=== PATIENT | female | born 1990 | race Caucasian/White ===

== ENCOUNTER 2018-12-17 22:24 | Inpatient (IN) | payer MEDICAID ==
[~2018-12-17] VITALS: Ht 170.2 cm; Wt 105.2 kg
--- NOTE | 2018-12-17 22:21 | NUR ---
NICOLE MOYER presented to unit via wheelchair from ED, accompanied by family , with c/o LABOR. NICOLE MOYER weighed, gowned, voided, and to bed. EFHM and TOCO applied, VS taken. NICOLE MOYER oriented to bed controls, call light, TV, heat, and A/C controls.
[2018-12-17 22:25] VITALS: BP 194/117
[2018-12-17] MEDS ORDERED: AMPICILLIN FOR IV USE 2,000 MG VIAL ONE (22:26)
[2018-12-17] MEDS ORDERED: D5 LR IV SOLUTION 1,000 ML IV ONE (22:26)
[2018-12-17] MEDS ORDERED: OXYTOCIN/NORMAL SALINE 500 ML IV ONE (22:26)
[2018-12-17] MEDS ORDERED: WATER (STERILE) FOR INJECTION 20 ML ONE (22:28)
[2018-12-17 22:30] VITALS: BP 145/107
[2018-12-17] MEDS ORDERED: LIDOCAINE/EPI 2% 1:200,00 (XYLOCAINE) 10 ML VIAL ONE (22:30)
--- OUTSIDE RECORDS SUMMARY | 2018-12-17 22:35 | XMS REPORT | Continuity of Care Document ---
Author Organization Unknown Address Unknown Allergies There is no data. Medications There is no data. Problems There is no data. Procedures There is no data. Results Test Result Range CULTURE, GROUP B STREP (VAGINAL) - 12/05/18 09:48 STREPTOCOCCUS, GROUP B CULTURE SEE NOTE NRG CMP - 12/12/18 10:30 GLUCOSE 80 mg/dL 65-139 UREA NITROGEN (BUN) 7 mg/dL 7-25 CREATININE 0.56 mg/dL 0.50-1.10 eGFR NON-AFR. SCOTTISH 126 mL/min/1.73m2 > OR=60 eGFR 146 mL/min/1.73m2 > OR=60 BUN/CREATININE RATIO NOT APPLICABLE (calc) 6-22 SODIUM 139 mmol/L 135-146 POTASSIUM 4.3 mmol/L 3.5-5.3 CHLORIDE 104 mmol/L 98-110 CARBON DIOXIDE 24 mmol/L 20-32 CALCIUM 9.1 mg/dL 8.6-10.2 PROTEIN, TOTAL 6.5 g/dL 6.1-8.1 ALBUMIN 3.5 g/dL 3.6-5.1 GLOBULIN 3.0 g/dL (calc) 1.9-3.7 ALBUMIN/GLOBULIN RATIO 1.2 (calc) 1.0-2.5 BILIRUBIN, TOTAL 0.3 mg/dL 0.2-1.2 ALKALINE PHOSPHATASE 137 U/L 33-115 AST 17 U/L 10-30 ALT 18 U/L 6-29 URIC ACID, SERUM - 12/12/18 10:30 URIC ACID 4.3 mg/dL 2.5-7.0 CBC - 12/12/18 10:30 WHITE BLOOD CELL COUNT 12.9 Thousand/uL 3.8-10.8 RED BLOOD CELL COUNT 3.97 Million/uL 3.80-5.10 HEMOGLOBIN 12.5 g/dL 11.7-15.5 HEMATOCRIT 37.1 % 35.0-45.0 MCV 93.5 fL 80.0-100.0 MCH 31.5 pg 27.0-33.0 MCHC 33.7 g/dL 32.0-36.0 RDW 11.9 % 11.0-15.0 PLATELET COUNT 199 Thousand/uL 140-400 MPV 12.1 fL 7.5-12.5 ABSOLUTE NEUTROPHILS 9727 cells/uL 6811-1259 ABSOLUTE LYMPHOCYTES 2012 cells/uL 850-3900 ABSOLUTE MONOCYTES 955 cells/uL 200-950 ABSOLUTE EOSINOPHILS 181 cells/uL 15-500 ABSOLUTE BASOPHILS 26 cells/uL 0-200 NEUTROPHILS 75.4 % NRG LYMPHOCYTES 15.6 % NRG MONOCYTES 7.4 % NRG EOSINOPHILS 1.4 % NRG BASOPHILS 0.2 % NRG Encounters ACCT No. Visit Date/Time Discharge Status Pt. Type Provider Facility Loc./Unit Complaint [id number] 12/12/2018 10:15:00 12/12/2018 23:59:59 [facility] Outpatient RAINA ESSIE INDU [facility] [id number] 12/12/2018 10:15:00 Document Registration [id number] 12/05/2018 09:30:00 Document Registration
--- OUTSIDE RECORDS SUMMARY | 2018-12-17 22:35 | XMS REPORT ---
Author Author MARIANO MONDRAGON Organization [employer] Address Unknown Phone Unavailable Care Team Providers Care Shipping Assistant Name Role Phone MARIANO MONDRAGON CP Unavailable Allergies, Adverse Reactions, Alerts Substance Reaction Event Type N.K.D.A. Info Not Available Non Drug Allergy Problems Problem Type Condition Code Onset Dates Condition Status Assessment Dental examination Z01.20 Active Medications No Known Medications Procedures Procedure Coding System Code Date INTRAORL-PERIAPICAL 1 FILM 90729 CPT-4 D0220 Sep 09, 2015 LTD ORAL EVALUATION - PROBLEM FOCUS CPT-4 D0140 Sep 09, 2015 Vital Signs Date/Time: Sep 09, 2015 Blood Pressure Diastolic 77 mmHg Blood Pressure Systolic 118 mmHg Results No Known Results Summary Purpose [employer] Submission
--- OUTSIDE RECORDS SUMMARY | 2018-12-17 22:35 | XMS REPORT ---
Author Author MARIANO MONDRAGON Organization [employer] Address Unknown Phone Unavailable Care Team Providers Care Administrative Receptionist Name Role Phone MARIANO MONDRAGON CP Unavailable Allergies, Adverse Reactions, Alerts Substance Reaction Event Type N.K.D.A. Info Not Available Non Drug Allergy Problems Problem Type Condition Code Onset Dates Condition Status Assessment Dental caries K02.9 Active Assessment Encounter for dental examination Z01.20 Active Medications Medication Code System Code Instructions Start Date End Date Status Dosage Hoyt [facility] [id number] 5-325 MG Orally every 6 hrs Aug 25, 2015 Aug 30, 2015 1 tablet as needed Procedures Procedure Coding System Code Date INTRAORL-PERIAPICAL 1 FILM 63207 CPT-4 D0220 Aug 25, 2015 BITEWING - SINGLE FILM CPT-4 D0270 Aug 25, 2015 LTD ORAL EVALUATION - PROBLEM FOCUS CPT-4 D0140 Aug 25, 2015 EXTRAC ERUPTED TOOTH/EXPOSED ROOT CPT-4 D7140 Aug 25, 2015 EXTRAC ERUPTED TOOTH/EXPOSED ROOT CPT-4 D7140 Aug 25, 2015 Vital Signs Date/Time: Aug 25, 2015 Blood Pressure Diastolic 88 mmHg Blood Pressure Systolic 133 mmHg Results No Known Results Summary Purpose [employer] Submission
[2018-12-17] MEDS ORDERED: LIDOCAINE 1% INJ 20 ML 20 ML VIAL ONE ×3 (22:36→23:13)
[2018-12-17 23:00] VITALS: BP 155/97
[2018-12-17] MEDS ORDERED: AMPICILLIN FOR IV USE 2,000 MG in WATER (STERILE) FOR INJECTION 14.8 ML IV ONE (23:05)
[2018-12-17] MEDS ORDERED: D5 LR IV SOLUTION 1,000 ML IV SCH (23:05)
[2018-12-17 23:12] LABS: BASOPHILS % (AUTO) 0 % (0-10); EOSINOPHILS # (AUTO) 0.2 10^3/uL (0.0-0.3); EOSINOPHILS % (AUTO) 1 % (0-10); HEMATOCRIT 41 % (35-52); HEMOGLOBIN 13.9 G/DL (11.5-16.0); LYMPHOCYTES # (AUTO) 3.3 X 10^3 (1.0-4.0); LYMPHOCYTES % (AUTO) 16 % (12-44); MEAN CORPUSCULAR HEMOGLOBIN 32 PG (25-34); MEAN CORPUSCULAR HGB CONC 34 G/DL (32-36); MEAN CORPUSCULAR VOLUME 93 FL (80-99); MEAN PLATELET VOLUME 12.3 FL (7.4-10.4); MONOCYTES # (AUTO) 1.6 X 10^3 (0.0-1.0); MONOCYTES % (AUTO) 8 % (0-12); NEUTROPHILS # (AUTO) 15.7 X 10^3 (1.8-7.8); NEUTROPHILS % (AUTO) 76 % (42-75); PLATELET COUNT 228 10^3/uL (130-400); WHITE BLOOD COUNT 20.7 10^3/uL (4.3-11.0)
[2018-12-17] MEDS ORDERED: MINERAL OIL CONCENTRATE 99.9% 15 ML UDC TOP PRN (23:15)
[2018-12-17 23:25] VITALS: BP 137/91
[2018-12-17 23:29] LABS: BAND NEUTROPHILS 1 %; BASOPHILS % (MANUAL) 0 %; EOSINOPHILS % (MANUAL) 1 %; LYMPHOCYTES % (MANUAL) 15 %; MONOCYTES % (MANUAL) 4 %; NEUTROPHILS % (MANUAL) 79 %; RBC MORPH NORMAL
[2018-12-17 23:40] VITALS: BP 177/80
--- NOTE | 2018-12-17 23:49 | History & Physical-OB/GYN ---
History of Present Illness History of Present Illness Reason for visit/HPI Onset of labor Date of Admission Dec 17, 2018 at 22:31 Date Seen by a Provider: Dec 17, 2018 Time Seen by a Provider: 10:35 I consulted on this patient on 12/17/18 23:43 Attending Physician Michael Jo DO Admitting Physician Michael Jo DO Consult Allergies and Home Medications Allergies Coded Allergies: No Known Drug Allergies (Unverified , 12/17/18) Patient Home Medication List Home Medication List Reviewed: Yes Past Uwkapxx-Rmhnwl-Vifqdz Hx Patient Social History Marrital Status: single Number of Children: 0 Number of living children: 0 Employed/Student: employed Alcohol Use: Denies Use Recreational Drug Use: No Smoking Status: Never a Smoker Recent Foreign Travel: No Contact w/other who traveled: No Surgeries Yes (D & C) Respiratory No Currently Using CPAP: No Currently Using BIPAP: No Cardiovascular No Neurological No Reproductive System : Yes Expected Date of Delivery: December 31, 2018 Last Menstrual Period: Dec 17, 2018 Hx : 2 Hx Para: 0 Hx Total # of Abortions (Spona: 1 Hx Reproductive Disorders: No Sexually Transmitted Disease: No HIV/AIDS: No Genitourinary No Gastrointestinal No Musculoskeletal No Endocrine History of Endocrine Disorders: No HEENT History of HEENT Disorders: No Loss of Vision: Denies Hearing Impairment: Denies Cancer No Psychosocial History of Psychiatric Problem: No Integumentary History of Skin or Integumenta: No Blood Transfusions History of Blood Disorders: No Adverse Reaction to a Blood Tr: No Review of Systems Constitutional: see HPI Physical Exam Physical Exam Vital Signs Capillary Refill : Labs Laboratory Tests 12/17/18 22:25: White Blood Count 20.7H, Red Blood Count 4.37, Hemoglobin 13.9, Hematocrit 41, Mean Corpuscular Volume 93, Mean Corpuscular Hemoglobin 32, Mean Corpuscular Hemoglobin Concent 34, Red Cell Distribution Width 13.0, Platelet Count 228, Mean Platelet Volume 12.3H, Neutrophils (%) (Auto) 76H, Lymphocytes (%) (Auto) 16, Monocytes (%) (Auto) 8, Eosinophils (%) (Auto) 1, Basophils (%) (Auto) 0, Neutrophils # (Auto) 15.7H, Lymphocytes # (Auto) 3.3, Monocytes # (Auto) 1.6H, Eosinophils # (Auto) 0.2, Basophils # (Auto) 0.0, Neutrophils % (Manual) 79, Lymphocytes % (Manual) 15, Monocytes % (Manual) 4, Eosinophils % (Manual) 1, Basophils % (Manual) 0, Band Neutrophils 1, Blood Morphology Comment NORMAL General Appearance: No Apparent Distress Respiratory: Chest Non Tender, Lungs Clear, Normal Breath Sounds Cardiovascular: Regular Rate, Rhythm, No Murmur Abdominal: normal bowel sounds, non tender Gynecology/General: No urethral discharge Labia: WNL Vagina: WNL Cervix: WNL Cervix OS: open (Completely dilated upon arrival at the hospital) Uterus: Enlarged Ovaries: WNL Pelvic Exam: normal external exam Extremity: Normal Inspection, Normal Range of Motion, Non Tender Assessment/Plan Assessment and Plan Assessment: Intrauterine at 38 weeks Plan: Vaginal delivery expected Admission Diagnosis Intrauterine at 38 weeks Admission Status: Inpatient Order (span 2 midnights) Reason for Inpatient Admission: Onset of labor with a vaginal delivery expected MICHAEL JO DO Dec 17, 2018 23:49
--- NOTE | 2018-12-17 23:57 | OB Labor & Delivery Record ---
L&D History Date of Service Date of Service: Dec 17, 2018 History Expected Date of Delivery: December 31, 2018 Gestational Age in Weeks: 38 Hx : 2 Hx Para: 0 Other History One missed requiring a D & C Complications Events: Routine care Intrapartal Events: None L&D Stage1 Monitors and Tracing Monitor Mode: External Heart Rate: 140 Monitor Accelerations: Uniform Monitor Decelerations: Variable Station: +1 Nursing Home Variability: Moderate (11-25) Short Term Variability: Present Presentation: Vertex Rupture of Membranes Spontaneous Ruture of Membrane: Yes Amniotic Membrane Rupture Time: 21:00 Amniotic Membrane Fluid Desc.: Clear Vaginal Bleeding Description: None L&D Stage2 Monitors and Tracing Monitor Mode: External Heart Rate: 140 Monitor Accelerations: Uniform Monitor Decelerations: Variable Nursing Home Variability: Moderate (11-25) Position: Right Occiput Anterior Presentation: Vertex Signs of Distress by FHT Signs of Distress heart decelerations during the pushing phase Cord Descript/Complications Cord Vessel Description: 3 Vessels Delivery Type Infant Delivery Method: Spontaneous Vaginal Anterior Shoulder: Left Episiotomy/Perineal Laceration Episiotomy Description: Midline Sutures Used: Vicryl Degree (describe repair) Midline episiotomy Delivery Summary Summary Estimated blood loss (mL): 300 ml Attending at delivery: Dr. Jo Condition of Delivery Examined: Cervix Examined, Uterus Explored Post Hemorrhage: SOCORRO Ashraf DO Dec 17, 2018 23:57
[2018-12-18] VITALS (10 sets, daily range): BP systolic 120–153; BP diastolic 62–96
[2018-12-18] MEDS ORDERED: OXYTOCIN/NORMAL SALINE 500 ML IV ONE
--- NOTE | 2018-12-18 00:04 | OB Labor & Delivery Record ---
Vag Delivery Note Vag Delivery Note Date of Delivery: 12/18/18 Preoperative Diagnosis: Rae Portillo is a (28 /Para 2 / 0, Gestational Age (wks)38with [] Postoperative Diagnosis: Same Surgeon: SOCORRO JFEFERS Corporate Treasurer: [] Anesthesia: [Pudendal Block] Delivery Type: [Normal Spontaneous Vaginal Delivery with Midline Episiotomy] Findings: [Female infant in the cephalic presentation (MELINDA)] Viable [female] , apgars [7, 9], weight [7 lb 9 oz] Lacerations: Midline Episiotomy with Standard Repair Intact placenta with 3 vessel cord. No nuchal cord, body cord or shoulder dystocia Pitocin given for hemorrhage prophylaxis Estimated Blood Loss: [300] ml Complications: None Condition: Stable Description of Procedure: The patient is a 28 year old female who presented [completely dilated with SROM] . She was admitted and informed consent was obtained. Her labor course was remarkable. She was then set up for delivery. The 's head was delivered atraumatically in the [MELINDA] position. The shoulders and remainder of the ' s body were then delivered without difficulty. Upon delivery, the head was held below the level of the perineum and the mouth and nares were bulb suctioned. The cord was doubly clamped and cut and the was placed on the mother's chest with pediatric staff in attendance. An intact placenta with 3-vessel cord delivered via Bran and there was found to be minimal bleeding.~ Vigorous fundal massage was performed and the fundus was found to be firm. IV oxytocin was given. Examination of the vagina and perineum revealed a [midline episiotomy ] laceration repaired in the usual fashion with 2-0 and 3-0 vicryl suture. Following the repair, sponge, instrument and needle counts were correct. Mom and baby were both in stable condition in the labor suite. Vitals - Labs Labs Laboratory Tests 12/17/18 22:25: White Blood Count 20.7H, Red Blood Count 4.37, Hemoglobin 13.9, Hematocrit 41, Mean Corpuscular Volume 93, Mean Corpuscular Hemoglobin 32, Mean Corpuscular Hemoglobin Concent 34, Red Cell Distribution Width 13.0, Platelet Count 228, Mean Platelet Volume 12.3H, Neutrophils (%) (Auto) 76H, Lymphocytes (%) (Auto) 16, Monocytes (%) (Auto) 8, Eosinophils (%) (Auto) 1, Basophils (%) (Auto) 0, Neutrophils # (Auto) 15.7H, Lymphocytes # (Auto) 3.3, Monocytes # (Auto) 1.6H, Eosinophils # (Auto) 0.2, Basophils # (Auto) 0.0, Neutrophils % (Manual) 79, Lymphocytes % (Manual) 15, Monocytes % (Manual) 4, Eosinophils % (Manual) 1, Basophils % (Manual) 0, Band Neutrophils 1, Blood Morphology Comment NORMAL SEALS,SOCORRO White DO Dec 18, 2018 00:04
[2018-12-18] MEDS ORDERED: OXYTOCIN/NORMAL SALINE 500 ML IV SCH (00:20)
[2018-12-18] MEDS ORDERED: IBUPROFEN 800 MG (MOTRIN) TAB PO ONE (00:25)
[2018-12-18] MEDS ORDERED: MEASLES,MUMPS,RUBELLA 1 EA INJ SQ ONE (00:30)
[2018-12-18] MEDS ORDERED: TETANUS,DIPTH,PERTUSS P/F (BOOSTRIX) 0.5 ML VIAL IM ONE (00:30)
[2018-12-18] MEDS ORDERED: WITCH HAZEL(TUCKS) 40 EA JAR TOP PRN (00:30)
[2018-12-18] MEDS ORDERED: BENZOCAINE/MENTHOL (DERMOPLAST) 56 ML CAN TP PRN (00:30)
[2018-12-18] MEDS: IBUPROFEN 800 MG (MOTRIN) TAB PO SCH ×4 (00:34→21:52)
[2018-12-18] MEDS ORDERED: oxyCODONE/APAP 5/325MG (PERCOCET 5) TABLET PO PRN (01:45)
[2018-12-18] MEDS ORDERED: ONDANSETRON 4 MG/2 ML (SDV) Z0FRAN IVP ONE (01:45)
--- NOTE | 2018-12-18 02:13 | NUR ---
pt vomiting. zofran given ivp
[2018-12-18] MEDS ORDERED: LIDOCAINE 1% INJ 20 ML 20 ML VIAL INJ ONE (02:15)
--- NOTE | 2018-12-18 02:20 | NUR ---
ff 1 below. moderate rubra noted. pericare completed. pad and panties applied. pt assisted to bathroom. positive void. pt assisted to w'c and taken down to room 311. pt orientated to room. mother remains at bedside. pt denies any needs at this time. will continue to monitor.
[2018-12-18] MEDS ORDERED: FOLI0.4T2 PO (03:42)
[2018-12-18] MEDS ORDERED: PREN-53 PO (03:42)
[2018-12-18] MEDS ORDERED: CATHETER FLUSH 10 ML SYR IV SCH ×2 (06:00)
[2018-12-18] MEDS ORDERED: ACETAMINOPHEN 500 MG TAB (TYLENOL) PO SCH (06:00)
--- NOTE | 2018-12-18 07:25 | Progress Note-Standard ---
Standard Progress Note Progress Notes/Assess & Plan Date Seen by a Provider: Dec 18, 2018 Time Seen by a Provider: 07:20 Progress/Assessment & Plan Subjective: Ms. Portillo is PPD#1 from a Normal Spontaneous Vaginal Delivery. She states that she feels great, very little pain and the bleeding has slowed. Objective: Vital signs are stable Heart: Regular rate and rhythm without appreciable murmur Lungs: Clear to auscultation bilaterally Abdomen: Good bowel sounds throughout, no tenderness, no rebound, funds 6 cm below umbilicus Assessment: Day #1 Vaginal Delivery Plan: Comfort care measures and pain management. Final Diagnosis Intrauterine at 38 weeks Focused Exam Respiratory: Chest Non Tender, Lungs Clear, Normal Breath Sounds Cardiovascular: Regular Rate, Rhythm, No Murmur Skin: normal color SOCORRO JEFFERS DO Dec 18, 2018 07:25
[2018-12-18] MEDS: DOCUSATE SODIUM 100 MG (COLACE) CAP PO SCH ×2 (09:29→21:52)
--- NOTE | 2018-12-18 09:35 | NUR ---
Initial shift assessment completed, see interventions for further.
--- NOTE | 2018-12-18 10:57 | NUR ---
Notified Dr. Jo per phone to request breast pump prescription order per pt request; order received. Pump prescription given to pt with instructions for apple picker at DME. Pt verbalized understanding.
--- NOTE | 2018-12-18 19:19 | NUR ---
report given to next shift.
[2018-12-19 01:00] VITALS: BP 111/68
[2018-12-19 06:34] LABS: BASOPHILS % (AUTO) 0 % (0-10); EOSINOPHILS # (AUTO) 0.2 10^3/uL (0.0-0.3); EOSINOPHILS % (AUTO) 2 % (0-10); HEMATOCRIT 31 % (35-52); HEMOGLOBIN 10.2 G/DL (11.5-16.0); LYMPHOCYTES # (AUTO) 2.9 X 10^3 (1.0-4.0); LYMPHOCYTES % (AUTO) 22 % (12-44); MEAN CORPUSCULAR HEMOGLOBIN 31 PG (25-34); MEAN CORPUSCULAR HGB CONC 33 G/DL (32-36); MEAN CORPUSCULAR VOLUME 95 FL (80-99); MEAN PLATELET VOLUME 11.2 FL (7.4-10.4); MONOCYTES # (AUTO) 1.1 X 10^3 (0.0-1.0); MONOCYTES % (AUTO) 8 % (0-12); NEUTROPHILS # (AUTO) 8.9 X 10^3 (1.8-7.8); NEUTROPHILS % (AUTO) 68 % (42-75); PLATELET COUNT 185 10^3/uL (130-400); WHITE BLOOD COUNT 13.1 10^3/uL (4.3-11.0)
[2018-12-19 07:30] VITALS: BP 145/56
[2018-12-19] MEDS: IBUPROFEN 800 MG (MOTRIN) TAB PO SCH ×2 (07:45→14:14)
[2018-12-19] MEDS: DOCUSATE SODIUM 100 MG (COLACE) CAP PO SCH (07:45)
--- NOTE | 2018-12-19 08:23 | Discharge Inst-Simple/Standard ---
Discharge Inst-Standard Discharge Medications New, Converted or Re-Newed RX: RX Given to Pt/Family Patient Instructions/Follow Up Plan of Care/Instructions/FU: Pelvic rest for 6 weeks. No heavy lifting less than 20 lbs No strenous activities Tub Soaks 2-3 x daily Return to office in 6 weeks. Call with problems or questions Activity as Tolerated: Yes Discharge Diet: No Restrictions Return to The Hospital For: Problems o questions SOCORRO JEFFERS DO Dec 19, 2018 08:22
[2018-12-19] MEDS ORDERED: OXYC1TAB87 PO (08:25)
[2018-12-19] MEDS ORDERED: IBUP-1780 PO (08:25)
[2018-12-19] MEDS ORDERED: DOCU100C37 PO (08:25)
--- NOTE | 2018-12-19 08:32 | Discharge Summary ---
Diagnosis/Chief Complaint Date of Admission Dec 17, 2018 at 22:31 Date of Discharge December 19, 2018 Discharge Date: Dec 19, 2018 Discharge Time: 08:10 Admission Diagnosis Admission Diagnosis Intrauterine at 38 weeks Spontaneous Rupture of Membranes GBS Positive Discharge Diagnosis Intrauterine at 38 weeks Spontaneous Rupture of Membranes GBS Positive Reason Hospital Visit Onset of labor Discharge Summary Hospital Course Was the Problem List Reviewed?: Yes Hospital Course Ms. Portillo presented to the hospital with spontaneous rupture of membranes and complete dilation. She subsequently delivered a healthy viable female over a midline episiotomy, which was repaired in standard fashion. The remainder of her hospital course was unremarkable. Her vital signs remained stable throughout her hospitalization. She will be discharged to home with instructions, prescriptions and a follow up appointment. Labs Laboratory Tests 12/17/18 22:25: White Blood Count 20.7H, Mean Platelet Volume 12.3H, Neutrophils (%) (Auto) 76H , Neutrophils # (Auto) 15.7H, Monocytes # (Auto) 1.6H 12/19/18 06:25: White Blood Count 13.1H, Mean Platelet Volume 11.2H, Neutrophils # (Auto) 8.9H, Monocytes # (Auto) 1.1H, Red Blood Count 3.30L, Hemoglobin 10.2#L, Hematocrit 31L Procedures None. Discharge Physical Examination Allergies: Coded Allergies: No Known Drug Allergies (Unverified , 12/17/18) Vitals & I&Os Vital Signs Date Time Temp Pulse Resp B/P (MAP) Pulse Ox O2 Delivery O2 Flow Rate FiO2 12/19/18 01:00 98.0 97 18 111/68 (82) 98 Room Air General Appearance: Alert, Oriented X3, No Acute Distress HEENT: PERRLA, EOMI Respiratory: Clear to Auscultation, Normal Air Movement Cardiovascular: Regular Rate, No Murmurs Abdominal: Normal Bowel Sounds, No Tenderness Extremities: No Clubbing, No Cyanosis Skin: No Rashes Neuro: Normal Gait, Normal Speech Psych/Mental Status: Mental Status NL Discharge Home Medications Reviewed and agree with Discharge Medication list on patient's Discharge Instruction sheet Instructions to Patient/Family Please see electronic discharge instructions given to patient. Clinical Quality Measures DVT/VTE Risk/Contraindication: Risk Factor Score Per Nursin RFS Level Per Nursing on Admit: 2=Moderate SOCORRO JEFFERS DO Dec 19, 2018 08:32
[2018-12-19 14:00] VITALS: BP 120/69
--- NOTE | 2018-12-19 15:41 | NUR ---
Home instructions given verbally and written. Gave Tdap vaccine. requiring to stay in hospital but mom to be discharged and remain a boarder.
--- NOTE | 2018-12-19 16:45 | NUR ---
DISMISSED FROM WS IN STABLE CONDITION TO ROOMING IN PARENT R/T HAVING TO STAY IN HOSPITAL. ROOMING IN INFORMATION GIVEN.
== END 2018-12-19 16:45 | disposition home or self-care (01) | DRG 807 ==
LOC: WSo 22:24 → LDRP 22:25 → WSo 22:30 → LDRP 22:31
PROVIDERS: ADMIT Obstetrics & Gynecology; ATTEND Obstetrics & Gynecology
PROC: 10E0XZZ Delivery of Products of Conception, External Approach (ICD-10-PCS; principal; 2018-12-17)
PROC: 0W8NXZZ Division of Female Perineum, External Approach (ICD-10-PCS; 2018-12-17)
DX: O76 Abnormality in fetal heart rate and rhythm complicating labor and delivery (principal); O99.820 Streptococcus B carrier state complicating pregnancy; Z3A.38 38 weeks gestation of pregnancy; Z37.0 Single live birth
CPT/HCPCS: 36415; 85007; 85025; 85027; 86850; 86900; 86901; 90715; 99212